=== PATIENT | female | born 1975 | race Caucasian/White ===

== ENCOUNTER 2018-07-10 18:04 | Emergency (ER) | payer SELFPAY ==
[~2018-07-10] VITALS: Ht 180.3 cm; Wt 77.6 kg
[2018-07-10 18:10] VITALS: BP 120/84
[2018-07-10] MEDS ORDERED: KETOROLAC 60 MG/2 ML VIAL IM ONE (18:20)
[2018-07-10] MEDS ORDERED: ASPIRIN 81 MG TAB.CHEW PO ONE (18:30)
[2018-07-10 19:21] VITALS: BP 120/84
== END 2018-07-10 19:25 | disposition home or self-care (01) ==
LOC: MED 18:04
DX: R20.0 Anesthesia of skin (principal); M79.641 Pain in right hand; R51 Headache
CPT/HCPCS: 70250; 81025; 96372; 99283; J1885

== ENCOUNTER 2022-04-17 10:56 | Emergency (ER) | payer MEDICAID ==
[~2022-04-17] VITALS: Ht 165.1 cm; Wt 65.8 kg
[2022-04-17 11:03] VITALS: BP 121/73
[2022-04-17] MEDS ORDERED: LORazepam 1 MG TAB PO ONE (11:15)
--- NOTE | 2022-04-17 11:50 | NUR ---
PATIENT PRESENTS TO ED WITH COMPLAINTS OF LEFT FACIAL NUMBNESS AND LUE NUMBNESS SINCE MIDNIGHT LAST NIGHT. PATIENT WITH NO S/S OF ACUTE DISTRESS. ABLE TO FOLLOW INSTRUCTIONS, AMBULATES WITH STEADY GAIT, FACIAL SYMMETRY. PATIENT AIRWAY IS INTACT, WITH BASELINE MENTATION APPROPRIATE FOR DEVELOPMENTAL AGE. WILL CONTINUE TO MONITOR
--- NOTE | 2022-04-17 12:06 | NUR ---
PATIENT ABLE TO AMBULATE TO BATHROOM WITH NO INCIDENT
[2022-04-17] MEDS ORDERED: ATI.5 PO (12:27)
[2022-04-17 12:52] VITALS: BP 112/68
--- NOTE | 2022-04-17 12:52 | NUR ---
PATIENT DISCHARGED, VERBALIZED UNDERSTANDING OF HEALTH TEACHINGS, LEFT ED WITH NO S/S OF ACUTE DISTRESS
== END 2022-04-17 12:52 | disposition home or self-care (01) ==
LOC: MED 10:56
DX: F45.8 Other somatoform disorders (principal); F41.9 Anxiety disorder, unspecified; Z79.899 Other long term (current) drug therapy
CPT/HCPCS: 99283